=== PATIENT | female | born 1955 | race Caucasian/White ===

== ENCOUNTER 2016-06-09 19:26 | Emergency (ER) | payer MEDICARE, OTHER ==
--- NOTE | 2016-06-09 19:52 | ED ---
General Adult HPI - General Chief complaint: Nausea/Vomiting/Diarrhea Stated complaint: vomiting/fever Time Seen by Provider: 06/09/16 19:41 Source: patient, RN notes reviewed Mode of arrival: ambulatory Limitations: no limitations - History of Present Illness Initial comments: 60-year-old female presents emergency Department chief complaint cough congestion times one week. 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 Patient denies fever, chills. She does show slight runny nose denies sore throat, ear pain, headache or dizziness. Patient states that she's been taking some over-the- counter cough syrup. She states she did have an episode of posttussive vomiting. She denies any abdominal pain. Denies any nausea at this time. - Related Data Home Medications Medication Instructions Recorded Confirmed Benazepril HCl [Lotensin] 20 mg PO DAILY 06/09/16 06/09/16 Carvedilol [Coreg] 25 mg PO BID 06/09/16 06/09/16 Citalopram Hydrobromide [CeleXA] 20 mg PO DAILY 06/09/16 06/09/16 HYDROcodone/APAP 7.5-325MG [[place] 1 tab PO Q12H 06/09/16 06/09/16 7.5-325] Meloxicam [Mobic] 7.5 mg PO BID PRN 06/09/16 06/09/16 Simvastatin [Zocor] 20 mg PO HS 06/09/16 06/09/16 amLODIPine [Norvasc] 10 mg PO DAILY 06/09/16 06/09/16 Previous Rx's Medication Instructions Recorded Azithromycin [Zithromax Z-pack] 0 mg PO DIRECTED #1 pack 06/09/16 methylPREDNISolone [Medrol Dose 4 mg PO DIRECTED #1 pack 06/09/16 Pack] Allergies Allergy/AdvReac Type Severity Reaction Status Date / Time No Known Allergies Allergy Verified 06/09/16 20:05 Review of Systems ROS Statement: Those systems with pertinent positive or pertinent negative responses have been documented in the HPI. ROS Other: All systems not noted in ROS Statement are negative. Past Medical History Past Medical History: Hypertension History of Any Multi-Drug Resistant Organisms: None Reported Past Surgical History: Bariatric Surgery, Section Additional Past Surgical History / Comment(s): lap band 2012 Past Psychological History: No Psychological Hx Reported Smoking Status: Never smoker Past Alcohol Use History: None Reported Past Drug Use History: None Reported General Exam Limitations: no limitations General appearance: alert, in no apparent distress Head exam: Present: atraumatic, normocephalic, normal inspection Eye exam: Present: normal appearance, PERRL, EOMI. Absent: scleral icterus, conjunctival injection, periorbital swelling ENT exam: Present: normal exam, normal oropharynx, mucous membranes moist, TM's normal bilaterally, normal external ear exam Neck exam: Present: normal inspection, full ROM. Absent: tenderness, meningismus, lymphadenopathy Respiratory exam: Present: rhonchi (Mild right). Absent: normal lung sounds bilaterally, respiratory distress, wheezes, rales, stridor Cardiovascular Exam: Present: regular rate, normal rhythm, normal heart sounds. Absent: systolic murmur, diastolic murmur, rubs, gallop, clicks GI/Abdominal exam: Present: soft, normal bowel sounds. Absent: distended, tenderness, guarding, rebound, rigid Neurological exam: Present: alert Skin exam: Present: warm, dry, intact, normal color. Absent: rash Course Vital Signs 06/09/16 06/09/16 19:33 20:02 Temperature 97.8 F Pulse Rate 95 Respiratory 18 16 Rate Blood Pressure 155/103 O2 Sat by Pulse 98 Oximetry Medical Decision Making - Medical Decision Making 52-year-old female presents emergency Department chief complaint cough congestion times one week patient's chest x-ray does not show an acute abnormality. Patient we treated for acute bronchitis at this time. Patient had no shortness breath. She did have one episode of posttussive vomiting. Patient will follow-up with primary care physician and return if symptoms worsen. Disposition Clinical Impression: Acute bronchitis Disposition: HOME SELF-CARE Condition: Stable Instructions: Acute Bronchitis (ED) Additional Instructions: Please return to the Emergency Department if symptoms worsen or any other concerns. Prescriptions: Azithromycin [Zithromax Z-pack] 0 mg PO DIRECTED #1 pack methylPREDNISolone [Medrol Dose Pack] 4 mg PO DIRECTED #1 pack Time of Disposition: 20:08
--- NOTE | 2016-06-09 20:06 | XR ---
EXAMINATION TYPE: XR chest 2V DATE OF EXAM: 06/09/2016 7:59 PM COMPARISON: 03/08/2012 HISTORY: Cough TECHNIQUE: Frontal and lateral views of the chest are obtained. FINDINGS: Heart and mediastinum are normal. Lungs are clear. Costophrenic angles are clear. There ar e no hilar masses. There is some bariatric surgery in the upper abdomen. Bony thorax is intact. IMPRESSION: No cardiopulmonary disease. Normal heart. No change.
[2016-06-09 20:08] VITALS: RESP 16
[2016-06-09 20:26] VITALS: BP 173/83; PULSE 74; TEMP 97.9
== END 2016-06-09 20:26 | disposition home or self-care (01) ==
LOC: EC 19:26
DX: J20.9 Acute bronchitis, unspecified (principal); I10 Essential (primary) hypertension; Z79.899 Other long term (current) drug therapy
CPT/HCPCS: 71020; 99284

== ENCOUNTER 2017-06-09 17:36 | Emergency (ER) | payer MEDICARE, OTHER ==
[2017-06-09 17:42] VITALS: RESP 18
--- NOTE | 2017-06-09 18:39 | ED ---
URI HPI - General Chief Complaint: Upper Respiratory Infection Stated Complaint: Coughing Time Seen by Provider: 06/09/17 17:50 Source: patient Mode of arrival: ambulatory Limitations: no limitations - History of Present Illness Initial Comments: 61-year-old female with past medical history as noted below presented for evaluation of URI symptoms. States she's having productive cough of discolored sputum, sinus congestion, myalgias, arthralgias, and generalized fatigue. 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 Denies any shortness breath, chest pain, nausea, vomiting. States she hasn't taken anything for her symptoms. Has not followed up with her primary care physician. - Related Data Home Medications Medication Instructions Recorded Confirmed Benazepril HCl [Lotensin] 20 mg PO DAILY 06/09/16 06/09/17 Citalopram Hydrobromide [CeleXA] 20 mg PO DAILY 06/09/16 06/09/17 HYDROcodone/APAP 7.5-325MG [[place] 1 tab PO Q12H 06/09/16 06/09/17 7.5-325] Simvastatin [Zocor] 20 mg PO HS 06/09/16 06/09/17 amLODIPine [Norvasc] 10 mg PO DAILY 06/09/16 06/09/17 Carvedilol [Coreg] 12.5 mg PO BID 03/15/17 06/09/17 Albuterol Sulfate [Proair Hfa] 2 puff INHALATION RT-Q6H PRN 06/09/17 06/09/17 Allergies Allergy/AdvReac Type Severity Reaction Status Date / Time No Known Allergies Allergy Verified 06/09/17 17:56 Review of Systems ROS Statement: Those systems with pertinent positive or pertinent negative responses have been documented in the HPI. ROS Other: All systems not noted in ROS Statement are negative. Constitutional: Reports: fever (subjective). Denies: weakness Eyes: Reports: eye discharge (clear). Denies: eye pain ENT: Denies: ear pain, throat pain Respiratory: Reports: cough. Denies: dyspnea, wheezes, hemoptysis Cardiovascular: Denies: chest pain, palpitations, syncope Endocrine: Reports: fatigue. Denies: polydipsia, polyuria Gastrointestinal: Denies: abdominal pain, nausea, vomiting Genitourinary: Denies: urgency, dysuria Musculoskeletal: Reports: arthralgia, myalgia. Denies: back pain Skin: Denies: rash, lesions Neurological: Denies: headache, weakness Psychiatric: Denies: anxiety, depression Hematological/Lymphatic: Denies: easy bleeding, swollen glands Past Medical History Past Medical History: Hypertension History of Any Multi-Drug Resistant Organisms: None Reported Past Surgical History: Bariatric Surgery, Section Additional Past Surgical History / Comment(s): lap band 2013 Past Psychological History: No Psychological Hx Reported Smoking Status: Never smoker Past Alcohol Use History: None Reported Past Drug Use History: None Reported General Exam Limitations: no limitations General appearance: alert, in no apparent distress Head exam: Present: atraumatic, normocephalic Eye exam: Present: normal appearance, PERRL, EOMI ENT exam: Present: normal exam, normal oropharynx Neck exam: Present: normal inspection. Absent: tenderness Respiratory exam: Present: normal lung sounds bilaterally. Absent: respiratory distress, wheezes, rales Cardiovascular Exam: Present: regular rate, normal rhythm GI/Abdominal exam: Present: soft. Absent: distended, tenderness, guarding, rebound, rigid Rectal exam: Present: deferred Extremities exam: Present: normal inspection, full ROM Back exam: Present: normal inspection, full ROM Neurological exam: Present: alert, oriented X3, normal gait Psychiatric exam: Present: normal affect, normal mood Skin exam: Present: warm, dry, intact, normal color Course Vital Signs 06/09/17 06/09/17 17:39 19:39 Temperature 97.1 F L 97.8 F Pulse Rate 70 74 Respiratory 18 18 Rate Blood Pressure 124/88 139/76 O2 Sat by Pulse 100 99 Oximetry Medical Decision Making - Medical Decision Making 61-year-old female with multiple sick contacts presented for evaluation of URI symptoms for the last few days. On physical examination lungs are clear to auscultation bilaterally and the remainder of exam is benign. We'll obtain influenza swabs and chest x-ray for further evaluation. Influenza swab positive for influenza A and CXR showed no acute process. Pt is outside the treatment time for tamiflu and this was articulated to the patient who stated she understood. She was advised follow-up with her primary care physician and given return instructions. The patient acknowledged an understanding of all information provided and agreed with this plan of care. - Lab Data Lab Results 06/09/17 Range/Units 18:00 Influenza Type A RNA Detected H (Not Detectd) Influenza Type B (PCR) Not Detected (Not Detectd) Disposition Clinical Impression: Influenza A Disposition: HOME SELF-CARE Condition: Stable Instructions: Influenza (ED) Referrals: Job Castillo MD [Primary Care Provider] - 1-2 days Time of Disposition: 19:25
--- NOTE | 2017-06-09 19:07 | XR ---
EXAMINATION TYPE: XR chest 2V DATE OF EXAM: 06/09/2017 COMPARISON: 03/15/2017 HISTORY: Cough TECHNIQUE: Frontal and lateral views of the chest are obtained. FINDINGS: Heart and mediastinum are normal. Lungs are clear. Diaphragm is normal. Bony thorax is int act. IMPRESSION: No active cardiopulmonary disease. No change.
[2017-06-09 19:40] VITALS: BP 139/76; PULSE 74; TEMP 97.8
== END 2017-06-09 19:39 | disposition home or self-care (01) ==
LOC: EC 17:36
DX: J10.1 Influenza due to other identified influenza virus with other respiratory manifestations (principal); I10 Essential (primary) hypertension; Z79.899 Other long term (current) drug therapy
CPT/HCPCS: 71046; 87502; 99283

== ENCOUNTER 2017-08-03 08:04 | Emergency (ER) | payer MEDICARE, OTHER ==
[2017-08-03 08:09] VITALS: BP 143/90; PULSE 70; RESP 18; TEMP 96.9
[2017-08-03] MEDS ORDERED: TOBRAMYCIN 0.3% OPHTH DROPS 5 ML BTL LEFT EYE STA (08:35)
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
== END 2017-08-03 08:51 | disposition home or self-care (01) ==
LOC: EC 08:04
DX: H10.89 Other conjunctivitis (principal); I10 Essential (primary) hypertension; Z79.899 Other long term (current) drug therapy
CPT/HCPCS: 99282

== ENCOUNTER 2017-12-26 10:30 | Emergency (ER) | payer MEDICARE, OTHER ==
[2017-12-26 10:52] VITALS: TEMP 97.4
[2017-12-26] MEDS ORDERED: SODIUM CHLORIDE 0.9% 500 ML IV STA (10:58)
[2017-12-26] MEDS ORDERED: SODIUM CHLORIDE 0.9% 1,000 ML IV STA (10:58)
[2017-12-26] MEDS ORDERED: MORPHINE SULFATE 4 MG/ML SYRINGE IVP STA ×3 (10:59→14:59)
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
[2017-12-26 11:52] VITALS: RESP 18
[2017-12-26 12:08] LABS: Basophils % (A) 0 %; Eosinophils # (A) 0.1 k/uL (0-0.7); Eosinophils % (A) 3 %; HCT 38.4 % (34.0-46.0); HGB 12.9 gm/dL (11.4-16.0); Lymphocytes % (A) 20 %; MCH 30.6 pg (25.0-35.0); MCHC 33.6 g/dL (31.0-37.0); MCV 90.9 fL (80.0-100.0); Mean Platelet Volume 6.7; Monocytes # (A) 0.2 k/uL (0-1.0); Monocytes % (A) 5 %; Neutrophils # (A) 3.8 k/uL (1.3-7.7); Neutrophils % (A) 72 %; Platelet Count 170 k/uL (150-450); RBC 4.22 m/uL (3.80-5.40); RDW 13.4 % (11.5-15.5); WBC 5.3 k/uL (3.8-10.6)
[2017-12-26 12:17] LABS: ALT 29 U/L (9-52); AST 27 U/L (14-36); Albumin 3.6 g/dL (3.5-5.0); Alcohol <10 mg/dL; Alkaline Phosphatase 66 U/L (38-126); Anion Gap 6 mmol/L; Blood Urea Nitrogen 17 mg/dL (7-17); Calcium 8.9 mg/dL (8.4-10.2); Carbon Dioxide 26 mmol/L (22-30); Chloride 109 mmol/L (98-107); Glucose 92 mg/dL (74-99); Potassium 4.2 mmol/L (3.5-5.1); Sodium 141 mmol/L (137-145); Total Protein 6.4 g/dL (6.3-8.2)
[2017-12-26 12:21] LABS: INR 1.1 (<1.2); Partial Thromboplastin Time 22.4 sec (22.0-30.0); Prothrombin Time 10.3 sec (9.0-12.0)
--- NOTE | 2017-12-26 12:42 | XR ---
EXAMINATION TYPE: XR wrist limited RT , 2 VIEWS DATE OF EXAM ORDERED: 12/26/2017 HISTORY: Pain. COMPARISON: None. FINDINGS: There is a moderately angulated, spiral fracture of the distal radial diaphysis. There is also a fracture of the distal ulna which is minimally displaced. IMPRESSION: FRACTURES OF DISTAL RADIUS AND ULNA. CODE A: INITIAL ENCOUNTER FOR CLOSED FRACTURE.
[2017-12-26 12:44] LABS: Creatine Kinase MB 0.9 ng/mL (0.0-2.4); Troponin I 0.014 ng/mL (0.000-0.034)
[2017-12-26 13:28] LABS: Appearance,Urine Clear (Clear); Bilirubin,Urine Negative (Negative); Blood,Urine Negative (Negative); Color,Urine Light Yellow; Glucose,Urine (UA) Negative (Negative); Ketones,Urine Negative (Negative); Leukocyte Esterase,Urine Negative (Negative); Nitrite,Urine Negative (Negative); Protein,Urine Negative (Negative); Specific Gravity,Urine 1.008 (1.001-1.035); Urobilinogen,Urine <2.0 mg/dL (<2.0)
[2017-12-26 13:39] LABS: Amphetamine Screen,Urine Not Detected (NotDetected); Barbiturate Screen,Urine Not Detected (NotDetected); Benzodiazepines Screen,Urine Not Detected (NotDetected); Cocaine Screen,Urine Not Detected (NotDetected); Methadone Screen, Urine Not Detected (NotDetected); Opiate Screen,Urine Not Detected (NotDetected); Oxycodone Screen, Urine Not Detected (NotDetected); Phencyclidine Screen,Urine Not Detected (NotDetected); Tricyclic Antidepressant,Urine Not Detected (NotDetected); Urn Cannabinoid Scrn Not Detected (NotDetected)
[2017-12-26] MEDS ORDERED: LORazepam 2 MG/ML INJ IV STA (14:59)
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
[2017-12-26 15:17] VITALS: BP 133/72; PULSE 61
== END 2017-12-26 15:51 | disposition home or self-care (01) ==
LOC: EC 10:30
DX: S52.591A Other fractures of lower end of right radius, initial encounter for closed fracture (principal); S52.691A Other fracture of lower end of right ulna, initial encounter for closed fracture; R07.81 Pleurodynia; R10.9 Unspecified abdominal pain; I10 Essential (primary) hypertension; Z98.84 Bariatric surgery status; Z79.891 Long term (current) use of opiate analgesic; Z79.899 Other long term (current) drug therapy; V89.2XXA Person injured in unspecified motor-vehicle accident, traffic, initial encounter; Y92.410 Unspecified street and highway as the place of occurrence of the external cause
CPT/HCPCS: 99285; 25605; 96374; 96375; 96376 ×2; 96361 ×4; 36415; 93005; 80053; 82550; 82553; 83605; 84484; 85025; 85610; 85730; 81003; 80306; 80320; 73100; 72125; 70450; 71260; 74177; J2060; J2270; Q9967

== ENCOUNTER 2018-01-04 13:47 | Day surgery (SDC) | payer MEDICARE, OTHER ==
[2018-01-01 10:00] VITALS: BMI 29.9
[~2018-01-04 13:47] MED LIST: LACTATED RINGERS 1,000 ML IV SCH; LIDOCAINE 1% 20 ML VIAL (10MG/ML) FOR IV START INTRADERMA PRN; ONDANSETRON 4 MG/2 ML VIAL IVP ONE; ceFAZolin IN SWFI 2 GM/20 ML SYRINGE IVP ONE
[2018-01-04] MEDS ORDERED: MIDAZOLAM 2 MG/2 ML VIAL IVP ONE (14:34)
[2018-01-04] MEDS ORDERED: fentaNYL (PF) 50 MCG/ML 2 ML AMP IVP ONE (14:36)
[2018-01-04] MEDS ORDERED: fentaNYL (PF) 50 MCG/ML 2 ML AMP ONE (15:53)
[2018-01-04] MEDS ORDERED: PROPOFOL 10 MG/ML 20 ML VIAL IV ONE (15:53)
[2018-01-04] MEDS ORDERED: ROPIVACAINE 5 MG/ML 30 ML VIAL ONE (15:53)
[2018-01-04] MEDS ORDERED: LIDOCAINE 2%-EPI 1:100,000 20 ML VIAL ONE (15:53)
[2018-01-04] MEDS ORDERED: MIDAZOLAM 2 MG/2 ML VIAL ONE (15:53)
[2018-01-04] MEDS ORDERED: ceFAZolin 1,000 MG in SODIUM CHLORIDE 0.9% 1,000 ML IRRIGATION ONE (16:13)
[2018-01-04 17:54] VITALS: TEMP 97.6
[2018-01-04] MEDS: HYDROmorphone 0.5 MG/0.5 ML SYRINGE IVP PRN ×2 (18:01→18:10)
[2018-01-04 18:20] VITALS: RESP 18
[2018-01-04] MEDS ORDERED: HYDROcodone/APAP 7.5-325MG 1 EACH TAB PO ONE (18:30)
[2018-01-04 19:02] VITALS: BP 162/77; PULSE 72
--- NOTE | 2018-01-05 08:53 | XR ---
EXAMINATION TYPE: XR wrist limited RT DATE OF EXAM: 01/04/2018 COMPARISON: NONE HISTORY: Postop TECHNIQUE: One view submitted FINDINGS: Postsurgical change appears in near-anatomic alignment. IMPRESSION: Postsurgical
--- NOTE | 2018-01-07 21:51 | OP ---
OPERATIVE REPORT PROCEDURE DATE: 01/04/2018. PREOPERATIVE DIAGNOSES: 1. Comminuted distal 3rd right radius fracture with a butterfly fragment, displacement and severe instability. 2. Secondary diagnosis is non displaced distal ulna, ulnar styloid fracture. FINAL DIAGNOSES: 1. Comminuted distal 3rd right radius fracture with a butterfly fragment, displacement and severe instability. 2. Secondary diagnosis is non displaced distal ulna, ulnar styloid fracture. PROCEDURE PERFORMED: 1. Open reduction, internal fixation, distal 3rd radial shaft fracture, right forearm. 2. Closed treatment of distal ulna fracture. SURGEON: Dr. López Field. READINESS PARAPROFESSIONAL: logistics assistant is Griselda Alonso. GROSS PATHOLOGY: This was a very complicated, difficult fracture to stabilize and successfully internally fixed. There was a butterfly fragment that was on the undersurface or dorsal side of the distal radius which was unable to be pieced back in adequately. In addition, it had complete loss of soft tissue attachment. Without the fragment, the fixation and construct appeared to be stable and therefore the fragment was discarded for fear that it would create a potential infected sequela. Otherwise, the fracture was treated with a distal radius fracture plate with a long proximal extension that was able to incorporate the distal 3rd shaft and the wrist joint area. It did not appear to be any significant fracture lines into the wrist joint itself. As such, there were 3 main fragments with the proximal and distal shaft and the butterfly fragment described above, was completely devoid of soft tissue attachment and discarded. DESCRIPTION OF PROCEDURE: This 62-year-old woman was taken to the operative suite and after an axillary block was performed by Department of Anesthesia in the preop holding area. This was supplemented intraoperatively with general anesthetic. The arm was prepped and draped in usual manner. Arm was then elevated exsanguinated and cuff was inflated to 250 mmHg. A standard volar radial incision was created and extended proximally to visualize the distal 3rd of the radius. Dissection taken through the skin and subcutaneous tissue. The radial artery was retracted to the radial aspect and flexor carpi radialis. The median nerves were kept to the ulnar aspect. The pronator quadratus was released off the radius as well as the brachioradialis. This provided exposure of the distal 3rd of the radius all the way into the wrist joint. Quite a bit of effort was required to reduce the very unstable comminuted fracture. Eventually, the proximal shafts were able to be interdigitated and held in place. Attempt was made also to keep the small butterfly fragment on the dorsal deep aspect of the exposure with limited success. At this time, because of the difficulty in piecing the fragment anatomically as well as its complete loss of soft tissue attachments, it was discarded. A long distal radius custom plate was then applied and fixed with at least 5 screws beyond the fracture site distally and 6 screws proximally. The procedure was performed under C-arm fluoroscopy. The final result was good alignment with stability and good forearm range of motion. The distal ulna was stable with gentle stressing and did not require any surgical repair. The wound was thoroughly irrigated with antibiotic solution. The tourniquet was released. Hemostasis was acquired with electrocautery and pressure. The subcuticular incision was then performed of the skin with 3-0 Vicryl followed by 5-0 nylon skin closure. A soft bulky dressing with a volar plaster splint was applied. Patient was taken recovery room in satisfactory condition. MMODL / IJN: [id number] /
== END 2018-01-04 19:11 | disposition home or self-care (01) ==
LOC: OR 13:47
PROVIDERS: ATTEND Orthopaedic Surgery Hand Surgery
DX: S52.501A Unspecified fracture of the lower end of right radius, initial encounter for closed fracture (principal); S52.614A Nondisplaced fracture of right ulna styloid process, initial encounter for closed fracture; V89.2XXA Person injured in unspecified motor-vehicle accident, traffic, initial encounter; I10 Essential (primary) hypertension; Z79.891 Long term (current) use of opiate analgesic; Z79.899 Other long term (current) drug therapy
CPT/HCPCS: 73100; 25607; C1713; J2250; J2405; J0690 ×2; J3010; J2795; J2704; J1170

== ENCOUNTER 2018-03-15 08:16 | Day surgery (SDC) | payer MEDICARE ==
[~2018-03-15 08:16] MED LIST changes: +MIDAZOLAM 2 MG/2 ML VIAL IV PRN; -ONDANSETRON 4 MG/2 ML VIAL IVP ONE; -ceFAZolin IN SWFI 2 GM/20 ML SYRINGE IVP ONE
[2018-03-15 08:40] VITALS: TEMP 98.2
[2018-03-15] MEDS ORDERED: fentaNYL (PF) 50 MCG/ML 2 ML AMP ONE (09:17)
[2018-03-15] MEDS ORDERED: MIDAZOLAM 2 MG/2 ML VIAL ONE (09:17)
[2018-03-15] MEDS ORDERED: PROPOFOL 10 MG/ML 20 ML VIAL IV ONE (09:17)
--- NOTE | 2018-03-15 09:20 | P.GSHP ---
History of Present Illness H&P Date: 03/15/18 Chief Complaint: Colon cancer screening Patient here today for colonoscopy. She believes she has a history of colon polyps. No bowel related complaints. No family history of colon cancer. Past Medical History Past Medical History: CVA/TIA, GERD/Reflux, Hypertension, Osteoarthritis (OA) Additional Past Medical History / Comment(s): hx migraines, stroke-"long time ago"-no residual effects, "my heart skips a beat", History of Any Multi-Drug Resistant Organisms: None Reported Past Surgical History: Bariatric Surgery, Section Additional Past Surgical History / Comment(s): Lap band, Section X3. Past Anesthesia/Blood Transfusion Reactions: No Reported Reaction Smoking Status: Former smoker - Past Family History Father Family Medical History: Deep Vein Thrombosis (DVT) Mother Family Medical History: Myocardial Infarction ([place]) Medications and Allergies Home Medications Medication Instructions Recorded Confirmed Type Benazepril HCl [Lotensin] 20 mg PO QAM 06/09/16 03/12/18 History Citalopram Hydrobromide [CeleXA] 20 mg PO DAILY 06/09/16 03/12/18 History amLODIPine [Norvasc] 10 mg PO QAM 06/09/16 03/12/18 History Carvedilol [Coreg] 25 mg PO BID 03/12/18 03/12/18 History Hydrocodone/Acetaminophen [[place] 1 tab PO TID PRN 03/12/18 03/12/18 History 7.5-325] Simvastatin [Zocor] 20 mg PO DAILY 03/12/18 03/12/18 History Allergies Allergy/AdvReac Type Severity Reaction Status Date / Time No Known Allergies Allergy Verified 03/12/18 08:54 Surgical - Exam Vital Signs Temp Pulse Resp BP Pulse Ox 98.2 F 86 18 130/84 96 03/15/18 08:38 03/15/18 08:38 03/15/18 08:38 03/15/18 08:38 03/15/18 08:38 Physical exam: General: Well-developed, well-nourished HEENT: Normocephalic, sclerae nonicteric Abdomen: Nontender, nondistended Extremities: No edema Neuro: Alert and oriented Assessment and Plan (1) Colon cancer screening Narrative/Plan: Will proceed with colonoscopy at this time. Current Visit: Yes Status: Acute Code(s): Z12.11 - ENCOUNTER FOR SCREENING FOR MALIGNANT NEOPLASM OF COLON SNOMED Code(s): 275650128
--- NOTE | 2018-03-15 09:31 | P.PCN ---
Date of Procedure: 03/15/18 Procedure(s) Performed: PREOPERATIVE DIAGNOSIS: Colon cancer screening POSTOPERATIVE DIAGNOSIS: Normal exam PROCEDURE: Colonoscopy ANESTHESIA: MAC SURGEON: Escobar Mojica M.D. SPECIMENS: None ENDOSCOPIC PROCEDURE: The patient was placed on the endoscopy table in the left decubitus position. The Olympus colonoscope was inserted into the anus and passed under direct visualization to the base of the cecum. The appendiceal orifice was visualized. From that point the scope was slowly withdrawn inspecting all surfaces carefully. There were no neoplastic inflammatory or polypoid lesions throughout the cecum, ascending, transverse, descending, sigmoid and rectum. There was no diverticulosis noted. Digital rectal examination was normal. The patient was taken to the recovery room in stable condition per anesthesia guidelines. RECOMMENDATIONS: Increase fiber. Follow-up colonoscopy in 5 years given the personal history of colon polyps
[2018-03-15 09:40] VITALS: RESP 16
[2018-03-15 09:55] VITALS: BP 126/81; PULSE 58
== END 2018-03-15 10:18 | disposition home or self-care (01) ==
LOC: ORWHC2ENDO 08:16
PROVIDERS: ATTEND Surgery
DX: Z12.11 Encounter for screening for malignant neoplasm of colon (principal); Z86.010 Personal history of colon polyps; K21.9 Gastro-esophageal reflux disease without esophagitis; I10 Essential (primary) hypertension; M19.90 Unspecified osteoarthritis, unspecified site; G43.909 Migraine, unspecified, not intractable, without status migrainosus; Z79.899 Other long term (current) drug therapy; Z98.84 Bariatric surgery status; Z87.891 Personal history of nicotine dependence; Z86.73 Personal history of transient ischemic attack (TIA), and cerebral infarction without residual deficits
CPT/HCPCS: J2250; J3010; J2704; G0105; 45378

== ENCOUNTER 2020-03-17 13:30 | Emergency (ER) | payer MEDICARE ==
[2020-03-17 13:37] VITALS: BP 159/95; PULSE 71; RESP 18; TEMP 98.1
--- NOTE | 2020-03-17 13:55 | ED ---
Eye Problem HPI - General Chief complaint: Eye Problems Stated complaint: watery/sore eyes Time Seen by Provider: 03/17/20 13:38 Source: patient Mode of arrival: ambulatory Limitations: no limitations - History of Present Illness Initial comments: Patient is a 64-year-old female presenting to emergency Department with complaints of bilateral eye irritation times one week. Patient states her symptoms started in her right eye with redness, yellowish discharge and irritation. Patient states last 2 days and has started to move to her left eye. She denies any significant eye pain just the irritation. She denies any changes in her vision, headaches, fever or chills. She denies any trauma to her eyes or foreign bodies. She denies wearing contacts. She has no further complaints at this time. Upon arrival to the ER, her vital signs are stable. - Related Data Home Medications Medication Instructions Recorded Confirmed Benazepril HCl [Lotensin] 20 mg PO QAM 06/09/16 03/12/18 Citalopram Hydrobromide [CeleXA] 20 mg PO DAILY 06/09/16 03/12/18 amLODIPine [Norvasc] 10 mg PO QAM 06/09/16 03/12/18 Carvedilol [Coreg] 25 mg PO BID 03/12/18 03/12/18 Hydrocodone/Acetaminophen [[place] 1 tab PO TID PRN 03/12/18 03/12/18 7.5-325] Simvastatin [Zocor] 20 mg PO DAILY 03/12/18 03/12/18 Previous Rx's Medication Instructions Recorded Polymyxin B-Trimeth Sulf Ophth 1 drops BOTH EYES Q4H 7 Days #1 03/17/20 [Polytrim Opthalmic] bottle Allergies Allergy/AdvReac Type Severity Reaction Status Date / Time No Known Allergies Allergy Verified 03/17/20 13:37 Review of Systems ROS Statement: Those systems with pertinent positive or pertinent negative responses have been documented in the HPI. ROS Other: All systems not noted in ROS Statement are negative. Past Medical History Past Medical History: CVA/TIA, GERD/Reflux, Hypertension, Osteoarthritis (OA) Additional Past Medical History / Comment(s): hx migraines, stroke-"long time ago"-no residual effects, "my heart skips a beat", History of Any Multi-Drug Resistant Organisms: None Reported Past Surgical History: Bariatric Surgery, Section Additional Past Surgical History / Comment(s): Lap band, Section X3. Past Anesthesia/Blood Transfusion Reactions: No Reported Reaction Past Psychological History: No Psychological Hx Reported Smoking Status: Never smoker Past Alcohol Use History: Occasional Past Drug Use History: None Reported - Past Family History Father Family Medical History: Deep Vein Thrombosis (DVT) Mother Family Medical History: Myocardial Infarction ([place]) General Exam - General Exam Comments Initial Comments: GENERAL: Patient is well-developed and well-nourished. Patient is nontoxic and in no acute distress. HEAD: Atraumatic, normocephalic. EYES: Pupils equal round and reactive to light, extraocular movements intact, sclera anicteric. Mildly injected conjunctiva on the right, left conjunctiva is normal. There is some mild active yellowish discharge on the right side. Eyelids were unremarkable. ENT: TMs normal, nares patent, oropharynx clear without exudates. Moist mucous membranes. NECK: Normal range of motion, supple without lymphadenopathy or JVD. LUNGS: Unlabored respirations. Breath sounds clear to auscultation bilaterally and equal. No wheezes rales or rhonchi. HEART: Regular rate and rhythm without murmurs, rubs or gallops. ABDOMEN: Soft, nontender, normoactive bowel sounds. No guarding, no rebound. No masses appreciated. : Deferred MUSCULOSKELETAL: Normal extremities with adequate strength and normal range of motion, no pitting or edema. No clubbing or cyanosis. NEUROLOGICAL: Patient is alert and oriented x 3. Motor and sensory are also intact. Symmetrical smile. Normal speech, normal gait. PSYCH: Normal mood, normal affect. SKIN: Warm, Dry, normal turgor, no rashes or lesions noted. Limitations: no limitations Course Vital Signs 03/17/20 13:35 Temperature 98.1 F Pulse Rate 71 Respiratory 18 Rate Blood Pressure 159/95 O2 Sat by Pulse 99 Oximetry Medical Decision Making - Medical Decision Making Patient is a 64-year-old female presenting with right eye irritation times one week. Her exam is consistent with conjunctivitis. I will start her on antibiotic drops. She denies wearing contacts. No change in her vision. Patient is agreeable with this plan of care. She does have an appointment with her PCP in 3 days that she will keep if symptoms persist. Return parameters were discussed with the patient she verbalized understanding. Disposition Clinical Impression: Bacterial conjunctivitis Disposition: HOME SELF-CARE Condition: Stable Instructions (If sedation given, give patient instructions): Conjunctivitis (ED) Additional Instructions: Please return to the Emergency Department if symptoms worsen or any other concerns. Exam is consistent with conjunctivitis. Use antibiotic eyedrops as prescribed. Follow-up with PCP. Prescriptions: Polymyxin B-Trimeth Sulf Ophth [Polytrim Opthalmic] 1 drops BOTH EYES Q4H 7 Days #1 bottle Is patient prescribed a controlled substance at d/c from ED?: No Referrals: Frankie Weir MD [Primary Care Provider] - 1-2 days
== END 2020-03-17 14:11 | disposition home or self-care (01) ==
LOC: EC 13:30
DX: H10.89 Other conjunctivitis (principal); I10 Essential (primary) hypertension; Z79.899 Other long term (current) drug therapy; Z86.73 Personal history of transient ischemic attack (TIA), and cerebral infarction without residual deficits
CPT/HCPCS: 99282

== ENCOUNTER → 2020-06-19 | Outpatient (CLI) | payer MEDICARE ==
[2020-06-19 14:47] VITALS: BP 135/78; PULSE 85; TEMP 98.4; BMI 33.3
--- NOTE | 2020-06-19 16:32 | P.BASOAP ---
Subjective Progress Note Date: 06/19/20 Principal diagnosis: Morbid obesity Patient here for evaluation. Requesting a lap band fill. Last seen 2 years ago. At that time 5.7 mL in band. Patient has gained 25-30 pounds since then. Says she does have episodes of regurgitation with most meats. Has an episode of vomiting one to 2 times per month. Would like a small fill. Objective - Vital Signs Vital signs: Vital Signs Temp 98.4 F 06/19/20 14:37 Pulse 85 06/19/20 14:37 Resp BP 135/78 06/19/20 14:37 Pulse Ox Intake & Output 06/18/20 06/19/20 06/19/20 18:59 06:59 18:59 Weight 96.615 kg - Exam Abdomen: Soft, nontender, nondistended Assessment/Plan (1) Morbid obesity Narrative/Plan: Patient overall doing fairly well. The patient would like to add fluid. We'll go from this 5.7-5.9. Patient's last upper GI prior to her fill while she was at 5.5 mL was normal with no obstruction. Patient notified to inform me if any dysphagia occurs. Plan: Date: 06/19/20 Initial Weight: Initial BMI: Current Weight: 96.615 kg Current BMI: 33.3 Type of Surgery: Total Volume in Band: Previous Volume: Volume Removed: Volume Added: Band Size:
== END | disposition home or self-care (01) ==
LOC: BARWHC3 14:20
PROVIDERS: ATTEND Surgery
DX: Z98.84 Bariatric surgery status (principal); E66.01 Morbid (severe) obesity due to excess calories; Z68.33 Body mass index [BMI] 33.0-33.9, adult
CPT/HCPCS: 99212

== ENCOUNTER 2020-09-09 14:05 | Emergency (ER) | payer MEDICARE ==
[2020-09-09 14:28] VITALS: RESP 18
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
[2020-09-09] MEDS ORDERED: KETOROLAC 15 MG/ML 1 ML VIAL IM STA (15:54)
[2020-09-09] MEDS ORDERED: ONDANSETRON ODT 4 MG TAB PO STA (15:54)
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
[2020-09-09] MEDS ORDERED: SODIUM CHLORIDE 0.9% 50 ML IVPB ONE (16:30)
[2020-09-09] MEDS ORDERED: BAMLANIVIMAB (EUA) 700 MG, ETESEVIMAB (EUA) 1,400 MG in SODIUM CHLORIDE 0.9% 50 ML IVPB ONE (17:00)
[2020-09-09 18:50] VITALS: BP 135/78; PULSE 95; TEMP 98.2
== END 2020-09-09 19:06 | disposition home or self-care (01) ==
LOC: EC 14:05
DX: U07.1 COVID-19 (principal); K21.9 Gastro-esophageal reflux disease without esophagitis; I10 Essential (primary) hypertension; M19.90 Unspecified osteoarthritis, unspecified site; Z86.73 Personal history of transient ischemic attack (TIA), and cerebral infarction without residual deficits
CPT/HCPCS: 87635; 70450; 99284; 96365; Q0245

== ENCOUNTER 2021-07-28 10:37 | Emergency (ER) | payer MEDICARE ==
[2021-07-28] MEDS ORDERED: ACETAMINOPHEN TAB 325 MG TAB PO STA (11:01)
--- NOTE | 2021-07-28 11:16 | ED ---
General Adult HPI - General Chief complaint: Upper Respiratory Infection Stated complaint: Sore throat Time Seen by Provider: 07/28/21 10:41 Source: patient, RN notes reviewed Mode of arrival: ambulatory Limitations: no limitations - History of Present Illness Initial comments: 65-year-old female presents emergency from chief complaint of cough congestion. Patient states symptoms started 3 days ago. Patient states that her grandchildren are sick with upper extremity infection was tested positive for cocaine 19 she states she tested negative at a time states that symptoms have not improved so she was worried. She has not went to chest pain or shortness of breath she does complain of feeling achy possible fever. Patient has no GI symptoms including nausea vomiting diarrhea constipation. - Related Data Home Medications Medication Instructions Recorded Confirmed Benazepril HCl [Lotensin] 20 mg PO QAM 06/09/16 06/19/20 Citalopram Hydrobromide [CeleXA] 20 mg PO DAILY 06/09/16 06/19/20 amLODIPine [Norvasc] 10 mg PO QAM 06/09/16 06/19/20 Carvedilol [Coreg] 25 mg PO BID 03/12/18 06/19/20 Hydrocodone/Acetaminophen [[place] 1 tab PO TID PRN 03/12/18 06/19/20 7.5-325] Simvastatin [Zocor] 20 mg PO DAILY 03/12/18 06/19/20 Previous Rx's Medication Instructions Recorded Polymyxin B-Trimeth Sulf Ophth 1 drops BOTH EYES Q4H 7 Days #1 03/17/20 [Polytrim Opthalmic] bottle Allergies Allergy/AdvReac Type Severity Reaction Status Date / Time No Known Allergies Allergy Verified 07/28/21 10:40 Review of Systems ROS Statement: Those systems with pertinent positive or pertinent negative responses have been documented in the HPI. ROS Other: All systems not noted in ROS Statement are negative. Past Medical History Past Medical History: CVA/TIA, GERD/Reflux, Hypertension, Osteoarthritis (OA) Additional Past Medical History / Comment(s): hx migraines, stroke-"long time ago"-no residual effects, "my heart skips a beat", History of Any Multi-Drug Resistant Organisms: None Reported Past Surgical History: Bariatric Surgery, Section Additional Past Surgical History / Comment(s): Lap band, Section X3. Past Anesthesia/Blood Transfusion Reactions: No Reported Reaction Past Psychological History: No Psychological Hx Reported Smoking Status: Never smoker Past Alcohol Use History: Occasional Past Drug Use History: None Reported - Past Family History Father Family Medical History: Deep Vein Thrombosis (DVT) Mother Family Medical History: Myocardial Infarction (NM) General Exam Limitations: no limitations General appearance: alert, in no apparent distress Head exam: Present: atraumatic, normocephalic, normal inspection Eye exam: Present: normal appearance, PERRL, EOMI. Absent: scleral icterus, conjunctival injection, periorbital swelling ENT exam: Present: normal exam, normal oropharynx, mucous membranes moist Neck exam: Present: normal inspection, full ROM. Absent: tenderness, meningismus, lymphadenopathy Respiratory exam: Present: normal lung sounds bilaterally. Absent: respiratory distress, wheezes, rales, rhonchi, stridor Cardiovascular Exam: Present: regular rate, normal rhythm, normal heart sounds. Absent: systolic murmur, diastolic murmur, rubs, gallop, clicks Course Vital Signs 07/28/21 07/28/21 07/28/21 10:38 10:58 11:22 Temperature 101.6 F H 98.2 F Pulse Rate 92 80 Respiratory 18 18 20 Rate Blood Pressure 142/96 136/91 O2 Sat by Pulse 94 L 96 Oximetry Medical Decision Making - Medical Decision Making Chest x-ray is unremarkable. Patient does have COVID-19 patient be discharged stable condition return parameters were discussed. - Lab Data Lab Results 07/28/21 Range/Units 10:53 Coronavirus (PCR) Detected A (Not Detectd) Disposition Clinical Impression: COVID-19 Disposition: HOME SELF-CARE Condition: Stable Instructions (If sedation given, give patient instructions): COVID-19 (Coronavirus Disease 2019) (ED) Additional Instructions: Please return to the Emergency Department if symptoms worsen or any other concerns. Is patient prescribed a controlled substance at d/c from ED?: No Referrals: Perico Robertson DO [Primary Care Provider] - 1-2 days Time of Disposition: 11:34
--- NOTE | 2021-07-28 11:23 | XR ---
EXAMINATION TYPE: XR chest 2V DATE OF EXAM: 07/28/2021 COMPARISON: 06/09/2017 HISTORY: Shortness of breath TECHNIQUE: Frontal and lateral views of the chest are obtained. FINDINGS: Scattered senescent parenchymal changes noted. Hyperinflation compatible with COPD. No evidence for infiltrate. No evidence for atelectasis. Heart size is stable. Mediastinal structures are stable and grossly unremarkable. No evidence for hilar prominence. Degenerative changes dorsal spine. IMPRESSION: 1. No evidence for acute pulmonary disease.
[2021-07-28 11:26] VITALS: BP 136/91; PULSE 80; RESP 20; TEMP 98.2
== END 2021-07-28 11:47 | disposition home or self-care (01) ==
LOC: EC 10:37
DX: U07.1 COVID-19 (principal); K21.9 Gastro-esophageal reflux disease without esophagitis; I10 Essential (primary) hypertension; M19.90 Unspecified osteoarthritis, unspecified site; Z86.73 Personal history of transient ischemic attack (TIA), and cerebral infarction without residual deficits; Z98.84 Bariatric surgery status
CPT/HCPCS: 71046; 87635; 99283

== ENCOUNTER 2023-08-10 13:03 | Emergency (ER) | payer MEDICARE ==
--- NOTE | 2023-08-10 13:58 | XR ---
EXAMINATION TYPE: XR humerus LT DATE OF EXAM: 08/10/2023 COMPARISON: NONE HISTORY: Pain TECHNIQUE: 2 views submitted. FINDINGS: Spurring along the radial head.. Diffuse demineralization. Mild hypertrophic arthropathy see joint. T here is a olecranon spur. Pathologic joint effusion noted. IMPRESSION: 1. There is a pathologic elbow joint effusion. Occult fracture not excluded. Correlate clinically. 2. Olecranon spur.
--- NOTE | 2023-08-10 14:54 | US ---
EXAMINATION TYPE: US venous doppler duplex UE LT DATE OF EXAM: 08/10/2023 COMPARISON: NONE CLINICAL INDICATION: Female, 67 years old with history of Pain and swelling; Pt states left arm pain s/p injury SIDE PERFORMED: Left Left Arm: Negative for DVT IMPRESSION: Grayscale, color doppler, spectral doppler imaging performed of the deep veins of the upper extremiti es. There is normal flow, compressibility and vascular waveforms.
--- NOTE | 2023-08-10 14:54 | ED ---
Upper Extremity HPI - General Chief Complaint: Extremity Injury, Upper Stated Complaint: Fall/Arm Pain Time Seen by Provider: 08/10/23 13:10 Source: patient, RN notes reviewed Mode of arrival: ambulatory Limitations: no limitations - History of Present Illness Initial Comments: This is a 67-year-old female who presents to the emergency department for a f all. States that 2 weeks ago she fell and landed on her left arm. Denies hitting her head or sustaining any other injuries. Not taking any blood thinners. She has since had increasing pain to the arm that she states is not getting any better. Pain was initially in the lower part of the arm, but is now in the upper part of the arm and she has noticed associated swelling and bruising to this area. She is taking her prescription pain medication along with pvah-fqu-[id number] medication without improvement in symptoms. States that it is becoming painful to move the arm. Denies any chest pain or shortness of breath. MD Complaint: Injury to:: left, arm - Related Data Home Medications Medication Instructions Recorded Confirmed Benazepril HCl [Lotensin] 20 mg PO QAM 06/09/16 06/19/20 Citalopram Hydrobromide [CeleXA] 20 mg PO DAILY 06/09/16 06/19/20 amLODIPine [Norvasc] 10 mg PO QAM 06/09/16 06/19/20 Hydrocodone/Acetaminophen [[place] 1 tab PO TID PRN 03/12/18 06/19/20 7.5-325] Simvastatin [Zocor] 20 mg PO DAILY 03/12/18 06/19/20 carvediloL [Coreg] 25 mg PO BID 03/12/18 06/19/20 Previous Rx's Medication Instructions Recorded Polymyxin B-Trimeth Sulf Ophth 1 drops BOTH EYES Q4H 7 Days #1 03/17/20 [Polytrim Opthalmic] bottle Allergies Allergy/AdvReac Type Severity Reaction Status Date / Time No Known Allergies Allergy Verified 08/10/23 13:08 Review of Systems ROS Statement: Those systems with pertinent positive or pertinent negative responses have been documented in the HPI. ROS Other: All systems not noted in ROS Statement are negative. Past Medical History Past Medical History: CVA/TIA, GERD/Reflux, Hypertension, Osteoarthritis (OA) Additional Past Medical History / Comment(s): hx migraines, stroke-"long time ago"-no residual effects, "my heart skips a beat", History of Any Multi-Drug Resistant Organisms: None Reported Past Surgical History: Bariatric Surgery, Section Additional Past Surgical History / Comment(s): Lap band, Section X3. Past Anesthesia/Blood Transfusion Reactions: No Reported Reaction Past Psychological History: No Psychological Hx Reported Smoking Status: Never smoker Past Alcohol Use History: Occasional Past Drug Use History: None Reported - Past Family History Father Family Medical History: Deep Vein Thrombosis (DVT) Mother Family Medical History: Myocardial Infarction (MS) General Exam Limitations: no limitations General appearance: alert, in no apparent distress Head exam: Present: atraumatic, normocephalic, normal inspection Respiratory exam: Present: normal lung sounds bilaterally. Absent: respiratory distress, wheezes, rales, rhonchi, stridor Cardiovascular Exam: Present: regular rate, normal rhythm, normal heart sounds. Absent: systolic murmur, diastolic murmur, rubs, gallop, clicks Extremities exam: Present: other (Pain and swelling over the left elbow and humerus. Range of motion limited by pain. 2+ radial pulses.) Neurological exam: Present: alert, oriented X3, CN II-XII intact Psychiatric exam: Present: normal affect, normal mood Course Vital Signs 08/10/23 08/10/23 08/10/23 13:05 13:08 15:56 Temperature 97.5 F L 98.1 F 98.1 F Pulse Rate 18 L 72 68 Respiratory 68 H 18 18 Rate Blood Pressure 166/97 124/76 136/76 O2 Sat by Pulse 97 99 99 Oximetry Procedures - Orthopedic Splinting/Casting Injury #1 Side: left Upper Extremity Injury Location: elbow Upper Extremity Immobilizer: posterior splint Medical Decision Making - Medical Decision Making This is a 67-year-old female who presents to the emergency department for a fall. Was pt. sent in by a medical professional or institution? @ -No Did you speak to anyone other than the patient for history? @ -No Did you review nursing and triage notes? @ -Yes, and I agree, it is accurate with regards to the patient's symptoms. Were old charts reviewed? @ -No Differential Diagnosis? @ -Differential Musculoskeletal: Muscular strain, contusion, ligament sprain, fracture, arthritis, septic arthritis, bursitis, cellulitis, muscle spasm, nerve compression, DVT, arterial occlusion, herpes zoster, electrolyte abnormality, tumor.... This is not meant to be in all inclusive list EKG interpreted by me (3pts min.)? @ -Not obtained X-rays interpreted by me (1pt min.)? @ -X-ray of the left humerus obtained. My interpretation identifies no acute fractures. CT interpreted by me (1pt min.)? @ -Not obtained U/S interpreted by me (1pt. min.)? @ -Duplex ultrasound of the left upper extremity obtained. My interpretation identifies no evidence of a DVT. What testing was considered but not performed? (CT, X-rays, U/S, labs)? Why? @ -None What meds were considered but not given? Why? @ -None Did you discuss the management of the patient with other professionals? @ -No Did you reconcile home meds? @ -No Was smoking cessation discussed for >3mins.? @ -No Was critical care preformed (if so, how long)? @ -No Were there social determinants of health that impacted care today? How? (Homelessness, low income, unemployed, alcoholism, drug addiction, transportation, low edu. Level, literacy, decrease access to med. care, usp, rehab)? @ -No Was there de-escalation of care discussed even if they declined? (Discuss DNR or withdrawal of care, Hospice)? @ -No What co-morbidities impacted this encounter? (DM, HTN, Smoking, COPD, CAD, Cancer, CVA, Hep., AIDS, mental health diagnosis, sleep apnea, morbid obesity)? @ -Osteoarthritis Was patient admitted / discharged? @ -Discharged. X-ray of the left humerus obtained demonstrating a small joint effusion, and an occult fracture of the elbow cannot be excluded. Duplex ultrasound of the left upper extremity obtained revealing no evidence of a DVT or other acute process. Given the possible occult fracture, patient was put in a long-arm posterior splint followed by an arm sling. Information for orthopedic follow-up provided. Patient discharged home in stable condition. Undiagnosed new problem with uncertain prognosis? @ -None Drug Therapy requiring intensive monitoring for toxicity (Heparin, Nitro, Insulin, Cardizem)? @ -None Were any procedures done? @ -Long arm splint of the left arm Diagnosis/symptom? @ -Fall, occult fracture of left elbow Acute, or Chronic, or Acute on Chronic? @ -Acute Uncomplicated (without systemic symptoms) or Complicated (systemic symptoms)? @ -Uncomplicated Side effects of treatment? @ -None Exacerbation, Progression, or Severe Exacerbation] @ -Not applicable Poses a threat to life or bodily function? @ -This may limit her use of the left arm for the mean time. Return precautions reviewed in depth, the patient is instructed to return to the emergency department with any new, worsening, or concerning symptoms. Patient verbalized understanding. This case was discussed in detail with the attending ED physician, Dr. Barakat. Presentation, findings, and treatment plan discussed in detail as well. - Radiology Data Radiology results: report reviewed, image reviewed Disposition Clinical Impression: Fall, Occult fracture of left elbow Disposition: HOME SELF-CARE Instructions (If sedation given, give patient instructions): Elbow Fracture (ED), Splint Care (ED) Additional Instructions: Return to the emergency department with any new, worsening, or concerning symptoms. Alternate with ibuprofen and Tylenol as needed for pain relief. Contact orthopedics as listed below for a follow-up appointment. Is patient prescribed a controlled substance at d/c from ED?: No Referrals: Perico Robertson DO [Primary Care Provider] - 1-2 days Jacob Davis MD [Medical Doctor] - 1-2 days Time of Disposition: 15:23
[2023-08-10 16:20] VITALS: BP 136/76; PULSE 68; RESP 18; TEMP 98.1
== END 2023-08-10 15:56 | disposition home or self-care (01) ==
LOC: EC 13:03
DX: S42.402A Unspecified fracture of lower end of left humerus, initial encounter for closed fracture (principal); I10 Essential (primary) hypertension; K21.9 Gastro-esophageal reflux disease without esophagitis; M19.90 Unspecified osteoarthritis, unspecified site; Z79.899 Other long term (current) drug therapy; Z86.73 Personal history of transient ischemic attack (TIA), and cerebral infarction without residual deficits; W19.XXXA Unspecified fall, initial encounter
CPT/HCPCS: 29105; 99284

== ENCOUNTER → 2023-08-14 | Outpatient (CLI) | payer MEDICARE ==
--- NOTE | 2023-08-14 09:59 | XR ---
EXAMINATION TYPE: XR humerus LT DATE OF EXAM: 08/14/2023 COMPARISON: NONE HISTORY: Pain TECHNIQUE: 2 views submitted. FINDINGS: The osseous structures are intact and the joint spaces are preserved. Olecranon spur. AC joint arthr opathy. Use osteopenia. Spurring of the radial head. Calcification along the humeral head can be asso ciated with calcific tendinosis of the rotator cuff. IMPRESSION: 1. No acute fracture or dislocation. 2. AC joint arthropathy correlate for calcific tendinosis rotator cuff. 3. Olecranon and radial head spurs
--- NOTE | 2023-08-14 10:01 | XR ---
EXAMINATION TYPE: XR shoulder complete LT DATE OF EXAM: 08/14/2023 COMPARISON: NONE HISTORY: Pain TECHNIQUE: Three views are submitted. FINDINGS: The osseous structures are intact. There is no acute fracture or dislocation. AC joint arthropathy. Calcification along the humeral head associated with the calcific tendinosis. IMPRESSION: 1. No acute fracture. 2. AC joint arthropathy correlate for calcific tendinosis rotator cuff.
== END | disposition home or self-care (01) ==
LOC: RADXRMAIN 09:12
PROVIDERS: ATTEND Nurse Practitioner Family
DX: M19.012 Primary osteoarthritis, left shoulder (principal); M77.8 Other enthesopathies, not elsewhere classified

== ENCOUNTER → 2023-09-28 | Outpatient (CLI) | payer MEDICARE ==
--- NOTE | 2023-09-28 21:52 | MR ---
EXAMINATION TYPE: MR shoulder LT wo con DATE OF EXAM: 09/28/2023 COMPARISON: None HISTORY: Left shoulder pain TECHNIQUE: Multiplanar, multisequence imaging of the left shoulder is performed without contrast. FINDINGS: There is marked osteoarthritic change of the left AC joint. There is mild subacromial and subdeltoid bursitis there is diffuse abnormal signal intensity within the distal supraspinatus tendon with tiny foci of marked increased signal intensity consistent with tendinosis and small rim rent tears. There is no retraction of the musculotendinous junction. There are multiple intrasubstance tears of the inf raspinatus tendon. The subscapularis tendon is intact. The biceps tendon is normal in signal intensity and position within the bicipital groove and there is no dislocation. The biceps anchor is intact. There is a SLAP tear of the superior cartilaginous labr um. IMPRESSION: 1. Rotator cuff tears involving the supraspinatus and infraspinatus tendons. 2. SLAP injury of the superior cartilaginous labrum. 3. Mild subacromial and subdeltoid bursitis. 4. Marked degenerative changes of the AC joint.
== END | disposition home or self-care (01) ==
LOC: RADMRIMAIN 15:22
PROVIDERS: ATTEND Orthopaedic Surgery
DX: M19.012 Primary osteoarthritis, left shoulder (principal); M75.102 Unspecified rotator cuff tear or rupture of left shoulder, not specified as traumatic; M75.52 Bursitis of left shoulder; M24.812 Other specific joint derangements of left shoulder, not elsewhere classified

== ENCOUNTER → 2024-03-29 | Outpatient (CLI) | payer MEDICARE ==
--- NOTE | 2024-04-01 07:54 | MM ---
Reason for Exam: Screening (asymptomatic). Last mammogram was performed 6 year(s) and 2 month(s) ago. Patient History: Menarche at age 14. First Full-Term at age 23. Postmenopausal. Patient used Hormonal Contraceptives for 2 years. Risk Values: Shreya 5 year model risk: 1.5%. NCI Lifetime model risk: 5.4%. Prior Study Comparison: 10/07/2000 Bilateral Screening Mammogram, [facility]. 05/29/2008 Bilateral Screening Mammogram, [facility]. 10/18/2009 Bilateral Screening Mammogram, [facility]. 02/04/2018 Bilateral MG screening mammo w CAD - 2, Unknown. Tissue Density: The breasts are heterogeneously dense, which may obscure small masses. Findings: There is no suspicious group of microcalcifications or new suspicious mass in either breast. Overall Assessment: Benign, BI-RAD 2 Management: Screening Mammogram of both breasts in 1 year. . Patient should continue monthly self-breast exams. A clinical breast exam by your physician is recommended on an annual basis. This exam should not preclude additional follow-up of suspicious palpable abnormalities. Note on Shreya scores and lifetime risk: 1. A Shreya score greater than 3% is considered moderate risk. If this is the case, consider specialist referral to assess eligibility for a risk reducing agent. 2. If overall lifetime risk for the development of breast cancer is 20% or higher, the patient may qualify for future screening with alternating mammogram and breast MRI. [facility], , 04/01/2024 7:51 AM. Electronically signed and approved by: Dayo Schreiber M.D. Radiologis
== END | disposition home or self-care (01) ==
LOC: RADMAMWWP 11:25
PROVIDERS: ATTEND Family Medicine
DX: Z12.31 Encounter for screening mammogram for malignant neoplasm of breast (principal); R92.333 Mammographic heterogeneous density, bilateral breasts; Z78.0 Asymptomatic menopausal state
CPT/HCPCS: 77063; 77067

== ENCOUNTER → 2024-12-16 | Outpatient (CLI) | payer MEDICARE ==
[~2024-12-16] MED LIST changes: -LACTATED RINGERS 1,000 ML IV SCH; -LIDOCAINE 1% 20 ML VIAL (10MG/ML) FOR IV START INTRADERMA PRN; -MIDAZOLAM 2 MG/2 ML VIAL IV PRN; +REGADENOSON 0.4 MG/5 ML SYRINGE IV PRN
--- NOTE | 2024-12-16 20:24 | CA ---
Lexiscan Nuclear Stress Test Report Name: Makayla Rose Exam Date: 12/16/2024 10:07 Exam Location: [place] Stress Ht (in): 67 Wt (lb): 198 BSA: 2.01 Ordering Phys: Perico Robertson DO Referring Phys: Perico Robertson DO Technologist: PM Age: 69 Gender: F : 1955 Procedure CPT: Indications: R94.31 ABNORMAL EKG, Unstable angina ICD-10 Codes: I200 Patient History: CP, HTN, CVA, FAMILY HX. Medications: UNKNOWN Meds past 24 hrs: Pretest Chest Pain: STRESS TEST Lexiscan Protocol Exercise Duration (min:sec): 02:[address] Depressions (mm): Angina Score: Bullard Score: Resting HR (bpm): 62 Peak HR (bpm): 82 Resting BP (mmHg): 140 / 89 Peak BP (mmHg): 141 / 80 MPHR: 153 Target HR: 130 % MPHR: 54 METS: 1.0 Total Dose: Peak Dose: Atropine: Double Product: 88518 BP Response: Stress Termination: Stress Symptoms: Stress Summary: ECG ANALYSIS Resting ECG: Stress ECG: CONCLUSIONS RESTING EKG normal sinus rhythm with mild ST depression with T wave inversions in lead V6. Patient recieved IV infusion of Lexiscan 0.4mg and at peak infusion STRESS EKG showed: Persistence of ST depression and T wave inversion in lead V6 ARRYTHMIAS: [No ectopic rhythms or sustained arrythmias] CONCLUSION: 1. Normal hemodynamic and clinical response to Lexiscan infusion. 2. EKG is Non - Diagnostic because of resting ST changes Please refer to the nuclear imaging portion of this stress test for complete interpretation of the study. Dr Jacob Glynn (Electronically Signed) Final Date: 16 December 2024 20:23
--- NOTE | 2024-12-18 14:46 | NM ---
EXAMINATION TYPE: NM stress lexiscan cardiolite DATE OF EXAM: 12/16/2024 COMPARISON: NONE CLINICAL INDICATION: Female, 69 years old with history of R94.31 abnormal EKG; TECHNIQUE: After the intravenous administration of 10.0 mCi Tc 99m Sestamibi - Cardiolite resting SP ECT images acquired 45 minutes post injection. The patient received 0.4mg Lexiscan, 25.8 mCi Tc 99m Sestamibi - Stress images obtained [address] injection FINDINGS: Review of stress and rest SPECT images demonstrates no distinct perfusion abnormality. Gated analysi s shows normal wall motion with an estimated left ventricular ejection fraction of 62 %. TID is uppe r limits of normal at 1.16. IMPRESSION: No scintigraphic evidence for reversible ischemia. [facility], , 12/18/2024 2:44 PM
== END | disposition home or self-care (01) ==
LOC: RADNMMAIN 08:29
PROVIDERS: ATTEND Family Medicine
DX: R94.31 Abnormal electrocardiogram [ECG] [EKG] (principal); I10 Essential (primary) hypertension; I63.9 Cerebral infarction, unspecified; I20.0 Unstable angina
CPT/HCPCS: 93017; 78452; A9500; J2785